=== PATIENT | female | born 1970 | race African-American/Black ===

== ENCOUNTER 2024-01-20 23:58 | Emergency (ER) | payer MEDICAID ==
[~2024-01-20] VITALS: Ht 170.2 cm; Wt 100.0 kg
[2024-01-21 00:03] VITALS: O2SAT 98
[2024-01-21] MEDS: LEVETIRACETAM 500MG/5ML CUP PO ONE (01:45)
[2024-01-21 02:12] LABS: BASOPHILS % 0.8 % (0.0-2.0); HEMATOCRIT. 35.2 % (36.0-48.0); LYMPHOCYTES % 28.7 % (20.0-50.0); MEAN CORPUSCULAR HEMOGLOBIN 32.2 pg (28.0-32.0); MEAN CORPUSCULAR HGB CONC 34.1 g/dL (31.0-37.0); MEAN CORPUSCULAR VOLUME 94.5 fL (81.0-99.0); MEAN PLATELET VOLUME 8.1 fl (7.4-10.4); MONOCYTES % 6.2 % (2.0-8.0); NEUTROPHILS % 62.3 % (40.0-76.0); PLATELET 174 x1000/uL (130-400); RED BLOOD CELL COUNT 3.72 mill/uL (4.2-5.4); RED CELL DISTRIBUTION WIDTH 13.1 % (11.6-14.6); WHITE BLOOD COUNT 8.8 x1000/uL (4.5-11.0)
[2024-01-21 02:35] LABS: AMMONIA < 17 uMol/L (<32)
[2024-01-21 02:39] LABS: ALANINE AMINOTRANSFERASE 20 IU/L (10-49); ALBUMIN 3.7 g/dL (3.2-4.8); ASPARTATE AMINOTRANSFERASE 23 IU/L (<34); BILIRUBIN TOTAL 0.3 mg/dL (0.1-1.0); CALCIUM 8.9 mg/dL (8.7-10.4); CARBON DIOXIDE 29 mEq/L (21-32); CHLORIDE 104 mEq/L (98-107); CREATINE KINASE 53 IU/L (34-145); CREATININE 0.7 mg/dL (0.6-1.0); GLUCOSE 262 mg/dL (70-105); PHENYTOIN 7.6 ug/mL (10-20); POTASSIUM 4.4 mEq/L (3.5-5.1); PROTEIN TOTAL 7.2 g/dL (6.0-8.3); SODIUM 137 mEq/L (136-145); THYROID STIMULATING HORMONE 0.64 uIU/mL (0.55-4.78); TROPONIN I HIGH SENSITIVITY 15 ng/L (3.0-34); UREA NITROGEN BLOOD 15 mg/dL (9-23)
[2024-01-21 02:41] LABS: CARBAMAZEPINE < 0.4 ug/mL (4-12); ETHANOL BLOOD < 10 mg/dL (<10); PHENOBARBITAL < 3.0 ug/mL (15.0-40.0); VALPROIC ACID < 3.0 ug/mL (50-100)
[2024-01-21] MEDS: PHENYTOIN SODIUM EXTENDED 100MG CAPSULE PO NR (03:00)
[2024-01-21 06:35] VITALS: BP 132/80; PULSE 68; RESP 17; TEMP 98.3
[2024-01-24] MEDS ORDERED: SERT100T MT (06:15)
[2024-01-24] MEDS ORDERED: LEVE750T4 PO (06:15)
[2024-01-24] MEDS ORDERED: PHEN100C4 PO (06:15)
[2024-01-24] MEDS ORDERED: BENA40TA91 PO (06:15)
[2024-01-24] MEDS ORDERED: ASPI-1497 PO (06:15)
[2024-01-24] MEDS ORDERED: PROT40 PO (06:15)
[2024-01-24] MEDS ORDERED: LIP40 PO (06:15)
[2024-01-24] MEDS ORDERED: PREG100C PO (06:15)
[2024-01-24] MEDS ORDERED: METO75TA PO (06:15)
[2024-01-24] MEDS ORDERED: AMLO5TAB88 PO (06:15)
[2024-01-24] MEDS ORDERED: LAM1 PO (06:15)
[2024-01-24] MEDS ORDERED: QUET400T PO (06:15)
[2024-01-25] MEDS ORDERED: METO5TAB2 PO (17:58)
== END 2024-01-21 06:45 | disposition home or self-care (01) ==
LOC: ER 01-21 00:08
DX: G40.901 Epilepsy, unspecified, not intractable, with status epilepticus (principal); I49.9 Cardiac arrhythmia, unspecified
CPT/HCPCS: 36415; 80053; 80156; 80165; 80184; 80185; 80320; 82140; 82550; 82962; 83605; 84443; 84484; 85025; 93005; 99284; G0480

== ENCOUNTER 2024-02-15 20:09 | Emergency (ER) | payer MEDICAID ==
[~2024-02-15] VITALS: Ht 165.1 cm; Wt 136.0 kg
[~2024-02-15 20:09] MED LIST: AMLO5TAB88 PO; ASPI-1497 PO; BENA40TA91 PO; LAM1 PO; LEVE750T4 PO; LIP40 PO; METO5TAB2 PO; METO75TA PO; PHEN100C4 PO; PREG100C PO; PROT40 PO; QUET400T PO; SERT100T MT
[2024-02-15 20:15] VITALS: O2SAT 98
[2024-02-15 20:52] LABS: BASOPHILS % 0.4 % (0.0-2.0); HEMOGLOBIN. 13.7 g/dL (12.0-16.0); LYMPHOCYTES % 24.8 % (20.0-50.0); MEAN CORPUSCULAR HEMOGLOBIN 33.6 pg (28.0-32.0); MEAN CORPUSCULAR HGB CONC 35.1 g/dL (31.0-37.0); MEAN CORPUSCULAR VOLUME 95.8 fL (81.0-99.0); MONOCYTES % 4.8 % (2.0-8.0); PLATELET 253 x1000/uL (130-400); RED BLOOD CELL COUNT 4.07 mill/uL (4.2-5.4); RED CELL DISTRIBUTION WIDTH 13.2 % (11.6-14.6); WHITE BLOOD COUNT 11.4 x1000/uL (4.5-11.0)
[2024-02-15] MEDS: MORPHINE SULFATE 4 MG/ML INJ (FOR IV/IM USE) IV STA (20:55)
[2024-02-15 21:12] LABS: ALANINE AMINOTRANSFERASE 25 IU/L (10-49); ALBUMIN 4.3 g/dL (3.2-4.8); ASPARTATE AMINOTRANSFERASE 22 IU/L (<34); BILIRUBIN TOTAL 0.4 mg/dL (0.1-1.0); CALCIUM 9.4 mg/dL (8.7-10.4); CARBON DIOXIDE 24 mEq/L (21-32); CHLORIDE 103 mEq/L (98-107); CREATININE 0.8 mg/dL (0.6-1.0); GLUCOSE 344 mg/dL (70-105); POTASSIUM 4.4 mEq/L (3.5-5.1); PROTEIN TOTAL 8.3 g/dL (6.0-8.3); SODIUM 136 mEq/L (136-145); TROPONIN I HIGH SENSITIVITY 12 ng/L (3.0-34); UREA NITROGEN BLOOD 13 mg/dL (9-23)
[2024-02-15] MEDS: HALOPERIDOL LACTATE 5MG/ML VIAL IM ONE (22:06)
[2024-02-16 01:10] VITALS: BP 164/83; PULSE 70; RESP 20; TEMP 98.6
== END 2024-02-16 01:10 | disposition home or self-care (01) ==
LOC: ER 20:09
DX: R10.9 Unspecified abdominal pain (principal); R07.9 Chest pain, unspecified; F17.200 Nicotine dependence, unspecified, uncomplicated; F31.9 Bipolar disorder, unspecified; I50.9 Heart failure, unspecified; E11.9 Type 2 diabetes mellitus without complications; E78.00 Pure hypercholesterolemia, unspecified; F20.9 Schizophrenia, unspecified; F12.90 Cannabis use, unspecified, uncomplicated
CPT/HCPCS: 80053; 83880; 83690; 85025; 84484; 36415; 71045; 74176; 93005; 96372; 96374; 99285; J1630; J2270; Z7610 ×3

== ENCOUNTER 2024-12-08 19:27 | Emergency (ER) | payer MEDICAID ==
[~2024-12-08] VITALS: Ht 167.6 cm; Wt 90.0 kg
[~2024-12-08 19:27] MED LIST changes: +BUSP30TA2 PO; +CYCL10TA21 PO; +CYM20 PO; +DES150 PO; -LAM1 PO; +LAMO100T16 PO; +LEVE10006 PO; -LEVE750T4 PO; -METO5TAB2 PO; +OMEP20CA14 PO; +OMEP20TA15 PO; +ONDA4TAB50 MT; +OXYB5TAB21 PO; +OXYC10TA48 PO; +PANT40SU MT; -PREG100C PO; -PROT40 PO
[2024-12-08 19:30] VITALS: TEMP 36.4; O2SAT 95
[2024-12-08 21:05] LABS: BASOPHILS % 0.4 % (0.0-2.0); EOSINOPHILS % 0.1 % (0.0-5.0); HEMATOCRIT. 38.5 % (36.0-48.0); LYMPHOCYTES % 10.3 % (20.0-50.0); MEAN CORPUSCULAR HEMOGLOBIN 31.5 pg (28.0-32.0); MEAN CORPUSCULAR HGB CONC 33.9 g/dL (31.0-37.0); MEAN CORPUSCULAR VOLUME 92.9 fL (81.0-99.0); MEAN PLATELET VOLUME 8.5 fl (7.4-10.4); MONOCYTES % 3.2 % (2.0-8.0); PLATELET 192 x1000/uL (130-400); RED BLOOD CELL COUNT 4.14 mill/uL (4.2-5.4); RED CELL DISTRIBUTION WIDTH 13.4 % (11.6-14.6)
[2024-12-08 21:10] LABS: CHLORIDE 102 mEq/L (98-107); POTASSIUM 3.9 mEq/L (3.5-5.1); SODIUM 138 mEq/L (136-145)
[2024-12-08 21:11] LABS: CALCIUM 9.5 mg/dL (8.7-10.4); CARBON DIOXIDE 24 mEq/L (21-32)
[2024-12-08] MEDS: METOCLOPRAMIDE HCL 10MG/2ML VIAL IV ONE (21:12)
[2024-12-08] MEDS: MORPHINE SULFATE 4 MG/ML INJ (FOR IV/IM USE) IV ONE (21:12)
[2024-12-08 21:16] LABS: CREATININE 0.7 mg/dL (0.6-1.0); PROTHROMBIN TIME 11.4 sec (9.6-11.0); UREA NITROGEN BLOOD 15 mg/dL (9-23)
[2024-12-08 21:18] LABS: ALANINE AMINOTRANSFERASE 14 IU/L (10-49); ALBUMIN 4.1 g/dL (3.2-4.8); ASPARTATE AMINOTRANSFERASE 15 IU/L (<34); BILIRUBIN DIRECT 0.2 mg/dL (<=3.0); BILIRUBIN TOTAL 0.4 mg/dL (0.1-1.0); PROTEIN TOTAL 7.8 g/dL (6.0-8.3)
[2024-12-08 21:26] LABS: GLUCOSE 402 mg/dL (70-105)
[2024-12-08] MEDS ORDERED: DEXTROSE 50% WATER 50ML SYRINGE IV PRN (21:45)
[2024-12-08] MEDS: LEVETIRACETAM 1500MG PREMIX 100 ML IV SCH (21:52)
[2024-12-08] MEDS: SODIUM CHLORIDE 0.9% 1,000 ML IV ONE (22:02)
[2024-12-08] MEDS: INSULIN LISPRO 100 UNITS/ML SUBCUT STA (22:03)
[2024-12-08] MEDS: HYDRALAZINE 20MG/ML VIAL IV ONE (22:17)
[2024-12-08 22:26] LABS: GLUCOSE URINE 3+ (NEGATIVE); KETONES URINE 1+ (NEGATIVE)
[2024-12-08] MEDS ORDERED: PHEN100C4 PO (22:29)
[2024-12-08] MEDS ORDERED: FAMO-135 MT (22:29)
[2024-12-08] MEDS ORDERED: QUET400T PO (22:29)
[2024-12-08] MEDS ORDERED: LEVE10006 PO (22:29)
[2024-12-08] MEDS: HYDROCODONE/ACETAMINOPHEN 5/325MG TABLET PO ONE (22:38)
[2024-12-08 23:07] VITALS: BP 137/94; PULSE 74; RESP 18; O2SAT 97
[2024-12-09 00:47] LABS: SQUAMOUS EPITHELIAL CELL URINE 1+ /lpf (RARE/1+)
[2024-12-09 00:49] LABS: CLARITY URINE CLEAR (CLEAR); COLOR URINE YELLOW (YELLOW); PH URINE 7.5 (4.5-8.0); PROTEIN URINE NEGATIVE (NEGATIVE); SPECIFIC GRAVITY URINE 1.03 (1.005-1.030)
[2024-12-09 00:50] LABS: BACTERIA URINE NONE SEEN; LEUKOCYTE ESTERASE URINE NEGATIVE (NEGATIVE); NITRITE URINE NEGATIVE (NEGATIVE); OCCULT BLOOD URINE NEGATIVE (NEGATIVE); RBC URINE 0-2 /hpf (0-2); UROBILINOGEN URINE 0.2 E.U./dL (0.2-1.0); WBC URINE 0-2 /hpf (0-2)
[2024-12-21] MEDS ORDERED: DIPH25CA83 MT (13:50)
[2024-12-21] MEDS ORDERED: PREG50CA MT (13:50)
[2024-12-21] MEDS ORDERED: OXYC-105 MT (15:52)
[2024-12-21] MEDS ORDERED: DICY20TA2 PO (17:08)
[2024-12-22] MEDS ORDERED: DOCU-138 PO (10:09)
[2024-12-22] MEDS ORDERED: IBUP-2029 PO (10:09)
[2024-12-22] MEDS ORDERED: PANT40TA51 PO (10:09)
[2024-12-22] MEDS ORDERED: INSU100I26 SUBCUT (10:18)
[2024-12-22] MEDS ORDERED: INSU100I28 SQ (10:20)
== END 2024-12-08 23:21 | disposition home or self-care (01) ==
LOC: ER 19:27
DX: R10.13 Epigastric pain (principal); R56.9 Unspecified convulsions; F12.10 Cannabis abuse, uncomplicated; E78.00 Pure hypercholesterolemia, unspecified; E11.9 Type 2 diabetes mellitus without complications; I11.0 Hypertensive heart disease with heart failure; I50.9 Heart failure, unspecified; F41.9 Anxiety disorder, unspecified; F31.9 Bipolar disorder, unspecified; Z88.6 Allergy status to analgesic agent; Z79.899 Other long term (current) drug therapy; Z79.82 Long term (current) use of aspirin
CPT/HCPCS: 99285; 74176; 96365; 96375; 80076; 80048; 81003; 82962; 83690; 85025; 85610; 36415; 96372; J1953; J1815; J2765; J2270; J7030